=== PATIENT | male | born 1980 | race Caucasian/White ===

== ENCOUNTER 2017-04-19 12:33 | Emergency (ER) | payer SELFPAY ==
[2017-04-19] MEDS ORDERED: Ketorolac 60 MG/2 ML SDV IM ONE (13:16)
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
--- NOTE | 2017-04-21 09:06 | CR ---
Chest 2V INDICATION: pain trauma FINDINGS: Negative chest.
== END 2017-04-19 14:58 | disposition home or self-care (01) ==
LOC: JP.ED 12:33
DX: R07.81 Pleurodynia (principal)
CPT/HCPCS: 71020; 96372; 99284; J1885; 99283

== ENCOUNTER 2018-06-27 22:56 | Emergency (ER) | payer OTHER ==
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
[2018-06-28] MEDS ORDERED: Acetaminophen/oxyCODONE 325-5 MG Tab PO ONE (00:30)
== END 2018-06-28 00:44 | disposition home or self-care (01) ==
LOC: JP.ED 22:56
DX: S50.01XA Contusion of right elbow, initial encounter (principal); W19.XXXA Unspecified fall, initial encounter
CPT/HCPCS: 73080; 99284; A9270